=== PATIENT | male | born 1965 | race Caucasian/White ===

== ENCOUNTER 2020-10-31 05:20 | Day surgery (SDC) | payer OTHER, BC ==
[2020-10-30 13:34] VITALS: BMI 27.3
[2020-10-31] MEDS ORDERED: BUPIVACAINE HCL/PF 0.5% (5MG/ML) 10 ML VIAL IJ ONE ×3 (12:47→15:16)
[2020-10-31] MEDS ORDERED: LIDOCAINE HCL 1% PRESERVATIVE FREE - 30ML VIAL IJ ONE (15:16)
[2020-10-31] MEDS ORDERED: IOHEXOL 180 MG/1 ML ML IJ ONE ×2 (15:16)
[2020-10-31 16:27] VITALS: TEMP 98.7
[2020-10-31 17:59] VITALS: BP 132/78; PULSE 68
== END 2020-10-31 16:25 | disposition home or self-care (01) ==
LOC: JASU-SURG 05:20
PROVIDERS: ATTEND Physical Medicine & Rehabilitation
PROC: 3E0T33Z Introduction of Anti-inflammatory into Peripheral Nerves and Plexi, Percutaneous Approach (ICD-10-PCS; 2020-10-31)
PROC: 3E0T3BZ Introduction of Anesthetic Agent into Peripheral Nerves and Plexi, Percutaneous Approach (ICD-10-PCS; principal; 2020-10-31 11:30)
DX: M47.816 Spondylosis without myelopathy or radiculopathy, lumbar region (principal); M54.5 Low back pain
CPT/HCPCS: 76000-TC-FY

== ENCOUNTER → 2021-04-14 | Day surgery (SDC) | payer OTHER, BC ==
[2021-04-08 16:06] VITALS: BMI 27.6
== END | disposition home or self-care (01) ==
LOC: JASU-SURG 04:38
PROVIDERS: ATTEND Physical Medicine & Rehabilitation
DX: Z53.8 Procedure and treatment not carried out for other reasons (principal)
CPT/HCPCS: J0131

== ENCOUNTER 2021-04-21 05:33 | Day surgery (SDC) | payer OTHER, BC ==
[2021-04-18 10:56] VITALS: BMI 27.6
[~2021-04-21 05:33] MED LIST: LIDOCAINE HCL 1%, 10 MG/ML (20ML VIAL) NR ONE
[2021-04-21] MEDS ORDERED: LIDOCAINE HCL 1%, 10 MG/ML (20ML VIAL) NR ONE ×2 (08:54)
[2021-04-21 12:36] VITALS: BP 120/60; PULSE 74; TEMP 98.4
== END 2021-04-21 12:00 | disposition home or self-care (01) ==
LOC: JASU-SURG 05:33
PROVIDERS: ATTEND Physical Medicine & Rehabilitation
PROC: 00HU3MZ Insertion of Neurostimulator Lead into Spinal Canal, Percutaneous Approach (ICD-10-PCS; principal; 2021-04-21 08:00)
DX: M96.1 Postlaminectomy syndrome, not elsewhere classified (principal); M54.16 Radiculopathy, lumbar region; M48.061 Spinal stenosis, lumbar region without neurogenic claudication
CPT/HCPCS: 63650; C1778; 76000-TC-FY; 94760